=== PATIENT | female | born 1930 ===

== ENCOUNTER 2020-09-03 15:15 | Emergency (ER) | payer OTHER ==
[~2020-09-03] VITALS: Ht 170.2 cm; Wt 97.1 kg
[~2020-09-03 15:15] MED LIST: DILTIAZEM 24HR240 MG; LEVAQUIN750 MG PO; LOSARTAN-HCTZ1 EAC1; PROTONIX40 MG PO; SIMVASTATIN10 MG
[2020-09-03] MEDS ORDERED: XARELTO10 MG (15:38)
[2020-09-04] MEDS ORDERED: PEPCID40 MG PO (02:32)
[2020-09-04] MEDS ORDERED: LEVSIN/SL0.125 MG SL (02:32)
[2020-09-04] MEDS ORDERED: CEPHALEXIN250 MG/5 M PO (02:32)
[2020-09-04] MEDS ORDERED: PHAZYME250 MG PO (02:32)
== END 2020-09-04 02:58 | disposition home or self-care (01) ==
LOC: ER 15:15
DX: K59.09 Other constipation (principal); N39.0 Urinary tract infection, site not specified; R10.84 Generalized abdominal pain

== ENCOUNTER 2020-09-04 18:17 | Emergency (ER) | payer OTHER ==
[~2020-09-04] VITALS: Ht 165.1 cm; Wt 97.1 kg
[~2020-09-04 18:17] MED LIST changes: +CEPHALEXIN250 MG/5 M PO; +LEVSIN/SL0.125 MG SL; +PEPCID40 MG PO; +PHAZYME250 MG PO; +XARELTO10 MG
== END 2020-09-04 22:58 | disposition home or self-care (01) ==
LOC: ER 18:17
DX: K56.690 Other partial intestinal obstruction (principal); R10.31 Right lower quadrant pain; R10.32 Left lower quadrant pain